=== PATIENT | male | born 1940 | race Caucasian/White ===

== ENCOUNTER 2019-01-11 09:08 | Emergency (ER) | payer MEDICARE ==
[2019-01-11] MEDS ORDERED: NORMAL SALINE 1000 ML 1,000 ML IV ONE ×2 (10:22→11:43)
[2019-01-11] MEDS ORDERED: ACETAMINOPHEN 325 MG TABLET PO ONE (10:22)
--- NOTE | 2019-01-11 10:24 | ER Document Report ---
ED Medical Screen (RME) - General Chief Complaint: Shortness Of Breath Stated Complaint: CONGESTION/DIZZY Time Seen by Provider: 01/11/19 10:21 Notes: Patient is a 78-year-old male that presents to the emergency department for chief complaint of cough, nausea. Patient reports not feeling well over the past few days, his had similar symptoms of cough, nausea, weakness. ROS: Other than noted above, the 12 point review of systems was reviewed with the patient and were negative, all pertinent findings are included in the HPI. PHYSICAL EXAMINATION: Vital signs reviewed. GENERAL: Elderly male, no acute respiratory distress HEAD: Atraumatic, normocephalic. EYES: Pupils equal round extraocular movements intact, conjunctiva are normal. ENT: Nares patent NECK: Normal range of motion CV: Heart regular rate and rhythm LUNGS: Dry cough noted on exam Musculoskeletal: Normal range of motion NEUROLOGICAL: Normal speech PSYCH: Normal mood, normal affect. MDM: Patient seen and examined for rapid initial assessment. Vital signs reviewed. A comprehensive ED assessment and evaluation of the patient, analysis of test results and completion of the medical decision making process will be conducted by additional ED providers. *Note is created using voice recognition software and may contain spelling, syntax or grammatical errors. - Related Data Allergies/Adverse Reactions: No Known Allergies Allergy (Unverified 01/11/19 09:09) Past Medical History - Social History Chew tobacco use (# tins/day): No Frequency of alcohol use: Rare Drug Abuse: None Renal/ Medical History: Denies: Hx Peritoneal Dialysis Physical Exam - Vital signs Vitals: Temp Pulse Resp BP Pulse Ox 102.5 F H 98 20 137/54 H 99 01/11/19 09:19 01/11/19 09:19 01/11/19 09:19 01/11/19 09:19 01/11/19 09:19 Course - Vital Signs Vital signs: Temp Pulse Resp BP Pulse Ox 102.5 F H 98 20 137/54 H 99 01/11/19 09:19 01/11/19 09:19 01/11/19 09:19 01/11/19 09:19 01/11/19 09:19
[2019-01-11 11:07] LABS: HEMATOCRIT 39.7 % (37.9-51.0); HEMOGLOBIN 13.8 g/dL (13.5-17.0); MEAN CORPUSCULAR HGB CONC 34.7 g/dL (32.0-36.0); MEAN CORPUSCULAR VOLUME 89 fl (80-97); PLATELET COUNT 158 10^3/uL (150-450); RED BLOOD COUNT 4.44 10^6/uL (4.35-5.55); WHITE BLOOD COUNT 6.8 10^3/uL (4.0-10.5)
--- NOTE | 2019-01-11 11:11 | ER Document Report ---
ED General - General Chief Complaint: Shortness Of Breath Stated Complaint: CONGESTION/DIZZY Time Seen by Provider: 01/11/19 10:21 Notes: 78-year-old male who presents today the onset 4 days ago of runny nose, congestion, productive cough, and some chills. He did not know he had a fever until he was seen here. Patient denies any sore throat, neck pain, headache, rash, abdominal pain, or dysuria. He states a mild anterior chest discomfort when he coughs. He states his has had similar symptomatology. Neither of them we have received the influenza shot or pneumonia shot - HPI Onset: Other - Related Data Allergies/Adverse Reactions: No Known Allergies Allergy (Unverified 01/11/19 09:09) Past Medical History - General Information source: Patient - Social History Smoking Status: Former Smoker Chew tobacco use (# tins/day): No Frequency of alcohol use: Rare Drug Abuse: None Family History: Reviewed & Not Pertinent Patient has suicidal ideation: No Patient has homicidal ideation: No Renal/ Medical History: Denies: Hx Peritoneal Dialysis Review of Systems - Review of Systems Constitutional: Fever EENT: Nose discharge, Throat swelling. denies: Eye discharge Cardiovascular: denies: Syncope, Dizziness Respiratory: Cough, Short of breath Gastrointestinal: denies: Vomiting Genitourinary: denies: Dysuria Musculoskeletal: denies: Leg swelling Skin: denies: Rash Neurological/Psychological: Other - no slurred speech -: Yes All other systems reviewed and negative Physical Exam - Vital signs Vitals: Temp Pulse Resp BP Pulse Ox 102.5 F H 98 20 137/54 H 99 01/11/19 09:19 01/11/19 09:19 01/11/19 09:19 01/11/19 09:19 01/11/19 09:19 Notes: Reviewed vital signs and nursing note as charted by RN. CONSTITUTIONAL: Alert and oriented and responds appropriately to questions. Well-appearing; well-nourished HEAD: Normocephalic; atraumatic EYES: PERRL; Conjunctivae clear, sclerae non-icteric ENT: Normal nose; bilateral nonpurulent nasal rhinorrhea; moist mucous membranes; pharynx without lesions noted NECK: Supple without meningismus; non-tender; no cervical lymphadenopathy, no masses CARD: Regular rate and rhythm; no murmurs; symmetric distal pulses RESP: Normal chest excursion without splinting or tachypnea; breath sounds clear and equal bilaterally; no wheezing, rales, with some scattered rhonchi ABD/GI: Normal bowel sounds; non-distended; soft, non-tender BACK: The back appears normal and is non-tender to palpation EXT: Normal ROM in all joints; non-tender to palpation; no edema SKIN: No acute lesions noted NEURO: CN 2-12 intact; 5/5 bilateral upper and lower extremity strength with sensation intact to light touch PSYCH: The patient's mood and manner are appropriate. Grooming and personal hygiene are appropriate. Course - Re-evaluation Re-evalutation: 01/11/19 11:10 Given the history and physical examination, patient had a pneumonia workup including an influenza and blood culture sent. Antipyretics have been provided. Patient is actually sitting up looking quite well satting 99% on room air. Given that the has similar symptomatology, I do believe influenza or an upper respiratory tract viral infection is most likely. EKG shows a heart rate of 98, normal sinus rhythm, LVH with inverted T waves in leads I and aVL. No ST elevation or depression 01/11/19 11:42 X-ray of the chest shows no obvious pneumonia. The sensitivity of the influenza at this location is 50%. Given the nasal congestion, cough, is similar symptomatology, without headache or neck stiffness, I do believe acute bacterial meningitis to be unlikely. I do believe that this is most likely a viral infection and/or influenza. Given the lack of sensitivity of the test at this location, we will most likely proactively start the patient on Tamiflu given his chronic medical conditions. 01/11/19 12:10 Labs as recorded. Normal lactic acid. Troponin is below the lower limit of normal. Patient denies any chest discomfort and has runny nose and congestion with cough. has similar symptomatology. Repeat vital signs as recorded. Patient will be discharged home with strict return precautions and follow-up with the primary care provider. - Vital Signs Vital signs: Temp Pulse Resp BP Pulse Ox 98.8 F 98 21 H 104/54 L 94 01/11/19 11:29 01/11/19 09:19 01/11/19 11:04 01/11/19 11:04 01/11/19 11:04 - Laboratory Result Diagrams: 01/11/19 10:43 01/11/19 10:43 Laboratory results interpreted by me: 01/11/19 01/11/19 01/11/19 10:30 10:43 10:43 Seg Neuts % (Manual) 83 H Lymphocytes % (Manual) 4 L BUN 21 H Creatinine 1.57 H Est GFR ( Amer) 52 L Est GFR (Non-Af Amer) 43 L Urine Protein 30 H Urine Blood MODERATE H Discharge - Discharge Clinical Impression: Nasal congestion, Cough Fever Qualifiers: Fever type: unspecified Qualified Code(s): R50.9 - Fever, unspecified Condition: Good Disposition: HOME, SELF-CARE Additional Instructions: Come back immediately with any worsening cough, leg swelling, headache or neck stiffness, rash, change in mental status, persistent vomiting or diarrhea, or any other acute problems. Please follow-up with the primary provider as we have discussed. Prescriptions: Oseltamivir Phosphate [Tamiflu 75 mg Capsule] 75 mg PO BID #10 capsule
[2019-01-11 11:12] LABS: PROTHROMBIN TIME 13.7 SEC (11.4-15.4)
[2019-01-11 11:13] LABS: APPEARANCE,URINE SLIGHTLY-CLOUDY; BILIRUBIN,URINE NEGATIVE (NEGATIVE); COLOR,URINE YELLOW; GLUCOSE, URINE NEGATIVE (NEGATIVE); KETONES,URINE NEGATIVE (NEGATIVE); LEUKOCYTE ESTERASE,URINE NEGATIVE (NEGATIVE); NITRITE,URINE NEGATIVE (NEGATIVE); PROTEIN,URINE 30 mg/dL (NEGATIVE); URINE SPECIFIC GRAVITY 1.025; UROBILINOGEN,URINE NEGATIVE mg/dL (<2.0)
[2019-01-11 11:19] LABS: A TYPE INFLUENZA AG NEGATIVE (NEGATIVE); B INFLUENZA AG NEGATIVE (NEGATIVE)
[2019-01-11 11:25] LABS: ABSOLUTE LYMPHOCYTES# (MANUAL) 0.5 10^3/uL (0.5-4.7); ABSOLUTE MONOCYTES # (MANUAL) 0.6 10^3/uL (0.1-1.4); ABSOLUTE NEUTROPHILS# (MANUAL) 5.6 10^3/uL (1.7-8.2); BASOPHILS % (MANUAL) 0 % (0-2); EOSINOPHILS % (MANUAL) 1 % (0-6); LYMPHOCYTES % (MANUAL) 4 % (13-45); MONOCYTES % (MANUAL) 9 % (3-13); SEGMENTED NEUTROPHILS % (MAN) 83 % (42-78); TOTAL CELLS COUNTED 100
[2019-01-11 11:26] LABS: PLATELET CLUMPS PRESENT; PLATELET COMMENT ADEQUATE; RBC MORPHOLOGY COMMENT NORMO-CYTIC/CHROMIC
[2019-01-11 11:30] LABS: ALANINE AMINOTRANSFERASE 25 U/L (21-72); ALBUMIN 4.8 g/dL (3.5-5.0); ALKALINE PHOSPHATASE 66 U/L (38-126); ANION GAP 11 (5-19); ASPARTATE AMINO TRANSFERASE 28 U/L (17-59); BILIRUBIN,DIRECT 0.2 mg/dL (0.0-0.4); BILIRUBIN,TOTAL 0.7 mg/dL (0.2-1.3); BLOOD UREA NITROGEN 21 mg/dL (7-20); CALCIUM 9.6 mg/dL (8.4-10.2); CARBON DIOXIDE 28 mmol/L (22-30); CHLORIDE 101 mmol/L (98-107); GLUCOSE 106 mg/dL (75-110); POTASSIUM 4.2 mmol/L (3.6-5.0); SODIUM 140.4 mmol/L (137-145); TOTAL PROTEIN 7.4 g/dL (6.3-8.2)
[2019-01-11 11:38] LABS: VENOUS BLOOD HCO3 23.1 mmol/L (20-32); VENOUS BLOOD PCO2 36.3 mmHg (35-63); VENOUS BLOOD PH 7.42 (7.30-7.42)
--- NOTE | 2019-01-11 11:41 | RADIOLOGY REPORT (SQ) ---
EXAM DESCRIPTION: CHEST 2 VIEWS COMPLETED DATE/TIME: 01/11/2019 11:24 am REASON FOR STUDY: cough, fever COMPARISON: None. EXAM PARAMETERS: NUMBER OF VIEWS: two views TECHNIQUE: Digital Frontal and Lateral radiographic views of the chest acquired. RADIATION DOSE: NA LIMITATIONS: none FINDINGS: LUNGS AND PLEURA: Calcified granuloma right lateral costophrenic sulcus. Lungs otherwise well inflated and clear. No pleural effusion. No pneumothorax. MEDIASTINUM AND HILAR STRUCTURES: No masses or contour abnormalities. Old calcified right hilar lymp h node, benign HEART AND VASCULAR STRUCTURES: Heart normal size. No evidence for failure. BONES: No acute findings. HARDWARE: None in the chest. OTHER: No other significant finding. IMPRESSION: NO ACUTE RADIOGRAPHIC FINDING IN THE CHEST. TECHNICAL DOCUMENTATION: JOB ID: [id number] [employer]- All Rights Reserved Reading location - IP/workstation name: [email or web address]
[2019-01-11] MEDS ORDERED: OSELTAMIVIR PHOSPHATE 75 MG CAPSULE PO ONE (12:15)
[2019-01-11 12:27] VITALS: BP 109/61
--- NOTE | 2019-01-11 12:59 | EKG REPORT ---
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
== END 2019-01-11 12:18 | disposition home or self-care (01) ==
LOC: ER 09:08
DX: R09.81 Nasal congestion (principal); R05 Cough; R50.9 Fever, unspecified; R42 Dizziness and giddiness; R06.02 Shortness of breath
CPT/HCPCS: 93005; 99284; 96360; 96361; 36415; 87040; 87086; 85025; 85610; 80053; 81001; 84484; 82803; 83605; 87804; 71046; 93010; A9270 ×2; J7030; J3490

== ENCOUNTER 2019-01-17 08:19 | Emergency (ER) | payer MEDICARE ==
--- NOTE | 2019-01-17 08:32 | ER Document Report ---
ED Respiratory Problem - General Chief Complaint: Cough Stated Complaint: COUGH, CONGESTION Time Seen by Provider: 01/17/19 08:32 Mode of Arrival: Ambulatory Information source: Patient Notes: Patient is a 78-year-old male who presents to the ER today for 2 weeks of worsening congestion, cough, productive of thick green sputum, intermittent chills but has not checked his temperature to know if he had a fever or not. Patient was seen here just a few days ago and had a negative flu although he was told that it was likely viral "like the flu." Patient does not have a history of asthma or COPD, he denies any shortness of breath or wheezing with this. He states the cough is now so bad that is keeping him awake at night. He has no history of congestive heart failure, denies any swelling to his lower extremities or chest pain. TRAVEL OUTSIDE OF THE [place] IN LAST 30 DAYS: No - Related Data Allergies/Adverse Reactions: No Known Allergies Allergy (Unverified 01/11/19 09:09) Past Medical History - General Information source: Patient - Social History Smoking Status: Former Smoker Family History: Reviewed & Not Pertinent Renal/ Medical History: Denies: Hx Peritoneal Dialysis Review of Systems - Review of Systems Constitutional: See HPI EENT: See HPI Cardiovascular: No symptoms reported Respiratory: See HPI Gastrointestinal: No symptoms reported Genitourinary: No symptoms reported Male Genitourinary: No symptoms reported Musculoskeletal: No symptoms reported Skin: No symptoms reported Hematologic/Lymphatic: No symptoms reported Neurological/Psychological: No symptoms reported Physical Exam - Vital signs Vitals: Temp Pulse Resp BP Pulse Ox 98.6 F 65 16 138/67 H 97 01/17/19 08:25 01/17/19 08:25 01/17/19 08:25 01/17/19 08:25 01/17/19 08:25 - Notes Notes: PHYSICAL EXAMINATION: GENERAL: Mildly ill-appearing, coughing, otherwise in no acute distress. HEAD: Atraumatic, normocephalic. EYES: Pupils equal round and reactive to light, extraocular movements intact, sclera anicteric, conjunctiva are normal. ENT: Airway patent, ear canals without erythema or foreign body, TMs pearly reis with good bony landmarks, nares patent, oropharynx clear without exudates. Moist mucous membranes. NECK: Normal range of motion, supple without lymphadenopathy LUNGS: Constant coughing, otherwise CTAB and equal. No wheezes rales or rhonchi. HEART: Regular rate and rhythm without murmurs ABDOMEN: Soft, no tenderness. No guarding, no rebound BACK: no vertebral tenderness, normal ROM GI/: no CVA tenderness EXTREMITIES: Normal range of motion, no pitting edema. No cyanosis. NEUROLOGICAL: Cranial nerves grossly intact. Normal sensory/motor exams. PSYCH: Normal mood, normal affect. SKIN: Warm, Dry, normal turgor, no rashes or lesions noted Course - Re-evaluation Re-evalutation: 01/17/19 09:40 Chest x-ray negative for any sign of pneumonia, will treat for sinusitis and bronchitis with 2 weeks now if symptoms seem to be worsening. Patient started on Z-Tariq and given cough syrup. To follow-up with primary care provider, he states it is easy to get into the office and will follow-up next week. - Vital Signs Vital signs: Temp Pulse Resp BP Pulse Ox 98.6 F 65 11 L 125/76 96 01/17/19 08:25 01/17/19 08:25 01/17/19 08:51 01/17/19 08:51 01/17/19 08:51 Discharge - Discharge Clinical Impression: Bronchitis Sinusitis Qualifiers: Sinusitis location: unspecified location Chronicity: acute Recurrence: non- recurrent Qualified Code(s): J01.90 - Acute sinusitis, unspecified Condition: Stable Disposition: HOME, SELF-CARE Additional Instructions: Return immediately for any new or worsening symptoms. Follow up with primary care provider, call tomorrow to make followup appointment. Prescriptions: Hydrocodone Bit/Homatropine [Hycodan Syrup 5-1.5 mg/5 ml Ud Cup] 5 ml PO Q4HP PRN #120 ml PRN Reason: Azithromycin [Zithromax 250 mg Tablet] 250 mg PO ASDIR PRN #6 tablet PRN Reason:
[2019-01-17] MEDS ORDERED: GUAIFENESIN/D-METHORPHAN (200-20 MG) SYRUP 10 ML PO ONE (09:20)
--- NOTE | 2019-01-17 09:22 | RADIOLOGY REPORT (SQ) ---
EXAM DESCRIPTION: CHEST 2 VIEWS COMPLETED DATE/TIME: 01/17/2019 8:50 am REASON FOR STUDY: cough COMPARISON: 01/11/2019 EXAM PARAMETERS: NUMBER OF VIEWS: two views TECHNIQUE: Digital Frontal and Lateral radiographic views of the chest acquired. RADIATION DOSE: NA LIMITATIONS: none FINDINGS: LUNGS AND PLEURA: Calcified granuloma right lower lobe. No evidence of pulmonary edema or pneumonia. MEDIASTINUM AND HILAR STRUCTURES: No masses or contour abnormalities. HEART AND VASCULAR STRUCTURES: Heart normal size. No evidence for failure. BONES: No acute findings. HARDWARE: None in the chest. OTHER: No other significant finding. IMPRESSION: NO ACUTE RADIOGRAPHIC FINDING IN THE CHEST. TECHNICAL DOCUMENTATION: JOB ID: [id number] [employer]- All Rights Reserved Reading location - IP/workstation name: [email or web address]
[2019-01-17 09:41] VITALS: BP 130/88
== END 2019-01-17 09:47 | disposition home or self-care (01) ==
LOC: ER 08:19
DX: J40 Bronchitis, not specified as acute or chronic (principal); J01.90 Acute sinusitis, unspecified
CPT/HCPCS: 99283; 71046; A9270; J3490